=== PATIENT | female | born 1960 | race Caucasian/White ===

== ENCOUNTER → 2016-03-09 | Outpatient (CLI) | payer OTHER ==
--- NOTE | 2016-03-09 18:46 | MA ---
Bilateral Digital Screening Mammography Clinical History: 55-year-old female whose maternal aunt had breast cancer at age 60. The patient pre sents today for routine annual mammographic screening. Technique: Digital cephalocaudal and mediolateral oblique views of each breast were obtained. The [facility] mography technologist indicated that the patient was anxious, making positioning difficult and minimi zing the degree of compression tolerated. Today's study is compared with previous exams dated March 01, 2015, January 23, 2012, October 15, 2010, and October 12, 2009. Additionally, the exam is iCAD ch ecked. Breast Density: Type B. CAD Evaluation: Negative. Findings: There is a [id number] residual fibroglandular pattern, which is stable. There is no f ocal neodensity, or interim architectural change. Benign-appearing axillary lymph nodes are seen. The re are no new suspicious clustered microcalcifications. Impression: Negative mammography. BI-RADS Category: 1 Recommendation: Routine annual mammographic screening. [facility] will send a result letter to the patient. Negative mammography should not preclude additional workup of a clinically suspicious finding. The patients information is entered into a reminder system with a target due date for her next mammog danya.
== END ==
LOC: FIMAGING 08:02
DX: Z12.31 Encounter for screening mammogram for malignant neoplasm of breast (principal)
CPT/HCPCS: G0202

== ENCOUNTER → 2016-04-08 | Outpatient (CLI) | payer OTHER ==
--- NOTE | 2016-04-08 19:16 | DX ---
DEXA Bone Mineral Densitometry Clinical Indications: Screening. Comparison: None Technique: Bone Mineral Densitometry (BMD) by Dual Energy X-Ray Absorptiometry (DEXA) was performed utilizing the BufferBox scanner. The lumbar spine was evaluated in the AP projection. The bilat eral hips and left forearm were evaluated in the AP projection. Vertebral fracture assessment was als o performed. AP Lumbar Spine: The L1, L2, L3 and L4 vertebral bodies are evaluated. BMD: 1.15 gm/cm2 T-score: -0.4 SD Z-score: 0.2 SD AP left Hip: BMD: 0.81 gm/cm2 T-score: -1.6 SD Z-score: -0.8 SD AP right Hip: BMD: 0.87 gm/cm2 T-score: -1.2 SD Z-score: -0.4 SD AP left Forearm: BMD: 0.79 gm/cm2 T-score: -0.9 SD Z-score: -0.4 SD Vertebral Fracture Assessment: No significant fracture deformity Conclusion: Considering the lowest measured site, patient is osteopenic. The ten year risk for any major osteoporotic fracture is 7.2 % and for a hip fracture is 0.6 %. Any bone loss in this patient is probably related to aging or estrogen deficiency. Recommendations: To prevent osteoporosis and to promote bone density, consider the following recommendations: 1. Pursue a regular regimen of weightbearing and muscle strengthening exercises in order to reduce t he risk of falls and fracture (as tolerated by the patient's general medical condition). 2. Ensure that total daily dietary calcium intake is maximized. 3. Check serum hydroxy vitamin D3 (normal >30ng/ml). 4. Ensure daily intake of vitamin D is 800 international units. 5. Consider follow-up DEXA scan in two years to assess the rate of bone loss in this patient. 6. Consider excluding common secondary causes of bone loss. Laboratory evaluation might include CBC , TSH, calcium, phosphorous, albumin, creatinine, alkaline phosphatase, PTH, serum, electrophoresis ( SPEP or UPEP), and antitissue transglutaminase antibody levels (celiac disease), and hydroxy vitamin D3, as well as a 24-hour urine calcium.
== END ==
LOC: BRMIMAGING 10:57
PROVIDERS: ATTEND Obstetrics & Gynecology
DX: M85.80 Other specified disorders of bone density and structure, unspecified site (principal); Z13.820 Encounter for screening for osteoporosis

== ENCOUNTER → 2017-04-28 | Outpatient (CLI) | payer OTHER | LOC: FIMAGING 15:19 | PROVIDERS: ATTEND Obstetrics & Gynecology | DX: Z12.31 Encounter for screening mammogram for malignant neoplasm of breast (principal) ==

== ENCOUNTER → 2017-07-07 | Outpatient (CLI) | payer OTHER | LOC: BMCIMAGING 15:45 | PROVIDERS: ATTEND Orthopaedic Surgery | DX: S52.131A Displaced fracture of neck of right radius, initial encounter for closed fracture (principal) ==

== ENCOUNTER 2017-08-15 20:48 | Emergency (ER) | payer OTHER ==
[2017-08-15 20:54] VITALS: BP 121/81
--- NOTE | 2017-08-15 21:03 | EDPHY ---
H & P Stated Complaint: L eye swollen & hives Time Seen by Provider: 08/15/17 21:02 - Personal History Current Tetanus/Diphtheria Vaccine: Unsure Current Tetanus Diphtheria and Acellular Pertussis (TDAP): Unsure - Medical/Surgical History Hx Asthma: No Hx Chronic Respiratory Disease: No Hx Diabetes: No Hx Cardiac Disease: No Hx Renal Disease: No Hx Cirrhosis: No Hx Alcoholism: No Hx HIV/AIDS: No Hx Splenectomy or Spleen Trauma: No Other PMH: MS - Social History Smoking Status: Never smoked Constitutional: Initial Vital Signs Temperature (C) 37.0 C 08/15/17 20:51 Heart Rate 87 08/15/17 20:51 Respiratory Rate 16 08/15/17 20:51 Blood Pressure 121/81 H 08/15/17 20:51 O2 Sat (%) 94 08/15/17 20:51 O2 Delivery Mode Room Air Allergies/Adverse Reactions: Antihistamines - Piperidine Allergy (Verified 08/15/17 20:54) Home Medications: Medication Instructions Recorded Famotidine [Pepcid 20 MG (OTC)] 20 mg PO DAILY #10 tab 08/15/17 predniSONE 40 mg PO DAILY #10 tab 08/15/17 Medical Decision Making ED Course/Re-evaluation: CHIEF COMPLAINT: Left eye pain and swelling HISTORY OF PRESENT ILLNESS: The patient is a 56 y/o female complaining of worsening left eye pain, redness, and swelling onset this morning when she woke up. Around 1 week ago she developed scattered hives on her arms and chest, so she thought the swelling today was due to the hives. This afternoon she saw her bottom liner and was told this swelling wasn't affecting her eye. The swelling was only localized to the upper and lower lid. She started taking homeopathic supplements and 2 Tylenol without relief of her symptoms. Denies chest pain, shortness of breath, abdominal pain, urinary or bowel complaints, fever. REVIEW OF SYSTEMS: A 10 point review of systems was performed and is negative with the exception of the elements mentioned in the history of present illness. PHYSICAL EXAM: HR, BP, O2 Sat, RR. Temp noted General Appearance: Alert, well hydrated, appropriate, and non-toxic appearing. Visual Acuity: Noted from Nurse's notes. Pupils: PERRLA, EOMI, no nystagmus, no trauma, no injection. Lids: Upper and lower lid erythema and swelling Skin: No proptosis, periorbital erythema and swelling, no vesicles Conjunctivae: Not injected, not icteric, no discharge Anterior chamber: Normal, no hyphema or hypopyon Posterior Chamber: No papilledema or hemorrhages. Past medical history: MS Past surgical history: Denies Family history: Denies Social history: Lives in [place], single, employed DIFFERENTIAL DIAGNOSIS: The differential diagnosis for the patient's eye pain included but was not limited to upper and lower eyelid swelling, allergies, foreign object, corneal abrasion, conjunctivitis, abscess, glaucoma, tension headache and infectious causes such as sinusitis. MEDICAL DECISION MAKING: The patient is a 56 y/o female presenting with worsening left eye pain, redness , and swelling onset this morning when she woke up. On exam she has upper and lower eyelid swelling. Laboratory and imaging studies not indicated. 40mg PO Pepcid and 60mg PO Prednisone administered. 2113: Reassessed patient and discussed Pepcid and Prednisone prescription. I have advised her to follow up with an tablet making machine operator for unimproved symptoms. Return precautions provided; patient is comfortable with this plan. Departure - Departure Disposition: Home, Routine, Self-Care Clinical Impression: Left eye pain Swollen eyelid Qualifiers: Laterality: left Qualified Code(s): H02.846 - Edema of left eye, unspecified eyelid Condition: Good Instructions: Eye Pain (ED) Additional Instructions: 1. Take Prednisone as prescribed. 2. Take Pepcid as prescribed. 3. Follow up with an tablet making machine operator in 3 days for unimproved symptoms. 4. Return to the Emergency Department for severe headache, vomiting, vision changes, confusion, fever or other concerns. Referrals: Rubén Coe MD [Medical Doctor] - As per Instructions Niko Coleman MD [Medical Doctor] - As per Instructions Prescriptions: Famotidine [Pepcid 20 MG (OTC)] 20 mg PO DAILY #10 tab predniSONE 40 mg PO DAILY #10 tab Report Scribed for: Lefty Ribeiro Report Scribed by: Alina Harley Date of Report: 08/15/17 Time of Report: 21:09
[2017-08-15] MEDS ORDERED: predniSONE 20 MG TAB PO ONE (21:09)
[2017-08-15] MEDS ORDERED: FAMOTIDINE 20 MG TAB PO ONE (21:09)
== END 2017-08-15 21:36 | disposition home or self-care (01) ==
DX: H02.846 Edema of left eye, unspecified eyelid (principal)
CPT/HCPCS: J7512

== ENCOUNTER → 2018-08-04 | Outpatient (CLI) | payer OTHER | LOC: FIMAGING 09:04 ==